=== PATIENT | male | born 1990 | race Two or more races ===

== ENCOUNTER 2021-10-22 09:21 | Inpatient (IN) | payer OTHER ==
[~2021-10-22] VITALS: Ht 175.3 cm; Wt 103.6 kg
[2021-10-22 10:01] LABS: BASOPHILS % (AUTO) 0.4 % (0.0-2.0); EOSINOPHILS % (AUTO) 0.2 % (1.0-6.0); HEMATOCRIT 45.5 % (41-53); HEMOGLOBIN 15.1 g/dL (13.5-17.5); LYMPHOCYTES # (AUTO) 1.8 K/uL (1.0-4.8); LYMPHOCYTES % (AUTO) 22.2 % (22.0-44.0); MEAN CORPUSCULAR HGB CONC 33.3 G/dL (31.0-37.0); MEAN CORPUSCULAR VOLUME 81 fL (80-100); MONOCYTES # (AUTO) 0.5 K/uL (0.1-1.0); MONOCYTES % (AUTO) 5.7 % (2.0-9.0); NEUTROPHILS # (AUTO) 5.8 K/uL (1.8-7.7); NEUTROPHILS % (AUTO) 71.5 % (40.0-70.0); PLATELET COUNT (AUTO) 219 K/uL (150-450); RED BLOOD CELL COUNT(AUTO) 5.59 MIL/uL (4.50-5.90); RED CELL DISTRIBUTION WIDTH 13.2 % (11.5-14.5)
[2021-10-22 10:08] LABS: ANION GAP 7 mmol/L (8-16); CALCIUM, TOTAL 9.5 mg/dL (8.8-10.5); CARBON DIOXIDE 29 mmol/L (22-29); CHLORIDE 104 mmol/L (98-107); CREATININE 0.86 mg/dL (0.60-1.30); GLOMERULAR FILTR. RATE CALC > 60 mL/min (>60); GLUCOSE,RANDOM 116 mg/dL (70-110); POTASSIUM 3.7 mmol/L (3.5-5.1); SODIUM SERUM 140 mmol/L (136-145); UREA NITROGEN, BLOOD 10 mg/dL (7-18)
[2021-10-22 10:14] LABS: ALANINE AMINOTRANSFERASE 22 U/L (12-78); ALKALINE PHOSPHATASE 69 U/L (46-116); ASPARTATE AMINOTRANSFERASE 23 U/L (15-37); BILIRUBIN,TOTAL 0.6 mg/dL (0.1-1.0); TOTAL PROTEIN, SERUM 8.3 g/dL (6.4-8.2)
[2021-10-22 10:25] LABS: COVID AG,FIA SOURCE NASAL SWAB
[2021-10-22] MEDS ORDERED: SODIUM CHLORIDE 0.9% 1,000 ML IV ONE (11:00)
[2021-10-22] MEDS ORDERED: MAGNESIUM HYDROXIDE SUSPENSION 30 ML UDCUP PO PRN (11:00)
[2021-10-22] MEDS ORDERED: LORazepam 2 MG/ML VIAL IVP PRN (11:00)
[2021-10-22] MEDS ORDERED: ZOLPIDEM TARTRATE 5 MG TABLET PO PRN (11:00)
[2021-10-22 12:19] VITALS: BP 121/73
[2021-10-22 15:35] VITALS: BP 124/76
[2021-10-22 20:00] VITALS: BP 122/72
[2021-10-22] MEDS: FAMOTIDINE 20 MG TABLET PO SCH (21:04)
[2021-10-23 04:43] VITALS: BP 125/54
[2021-10-23 08:09] VITALS: BP 112/70
[2021-10-23] MEDS: ONDANSETRON HCL 4 MG/2 ML VIAL IVP PRN (08:17)
[2021-10-23] MEDS: FAMOTIDINE 20 MG TABLET PO SCH ×2 (08:17→20:40)
[2021-10-23 16:13] VITALS: BP 136/79
[2021-10-23 20:06] VITALS: BP 111/75
[2021-10-23] MEDS: ACETAMINOPHEN 325 MG TABLET PO PRN (20:41)
[2021-10-24 05:18] VITALS: BP 117/76
[2021-10-24 08:18] VITALS: BP 116/63
[2021-10-24] MEDS: FAMOTIDINE 20 MG TABLET PO SCH ×2 (09:06→20:01)
[2021-10-24] MEDS: ONDANSETRON HCL 4 MG/2 ML VIAL IVP PRN ×2 (09:07→17:59)
[2021-10-24] MEDS ORDERED: SODIUM CHLORIDE 0.9% 1,000 ML IV ONE (10:00)
[2021-10-24 16:00] VITALS: BP 114/72
[2021-10-24 19:33] VITALS: BP 134/81
[2021-10-25 05:00] VITALS: BP 114/64
[2021-10-25 07:51] VITALS: BP 131/80
[2021-10-25] MEDS: FAMOTIDINE 20 MG TABLET PO SCH ×2 (08:12→19:59)
[2021-10-25] MEDS: ONDANSETRON HCL 4 MG/2 ML VIAL IVP PRN ×2 (08:13→17:00)
[2021-10-25 09:26] LABS: BASOPHILS % (AUTO) 0.7 % (0.0-2.0); EOSINOPHILS % (AUTO) 1.2 % (1.0-6.0); HEMATOCRIT 46.2 % (41-53); HEMOGLOBIN 15.6 g/dL (13.5-17.5); LYMPHOCYTES # (AUTO) 2.2 K/uL (1.0-4.8); LYMPHOCYTES % (AUTO) 30.1 % (22.0-44.0); MEAN CORPUSCULAR HEMOGLOBIN 27.1 pg (26.0-34.0); MEAN CORPUSCULAR HGB CONC 33.7 G/dL (31.0-37.0); MEAN CORPUSCULAR VOLUME 80 fL (80-100); MONOCYTES # (AUTO) 0.7 K/uL (0.1-1.0); MONOCYTES % (AUTO) 9.9 % (2.0-9.0); NEUTROPHILS # (AUTO) 4.3 K/uL (1.8-7.7); NEUTROPHILS % (AUTO) 58.1 % (40.0-70.0); PLATELET COUNT (AUTO) 208 K/uL (150-450); RED BLOOD CELL COUNT(AUTO) 5.75 MIL/uL (4.50-5.90)
[2021-10-25 09:38] LABS: ANION GAP 5 mmol/L (8-16); CARBON DIOXIDE 32 mmol/L (22-29); CHLORIDE 103 mmol/L (98-107); CREATININE 0.89 mg/dL (0.60-1.30); GLOMERULAR FILTR. RATE CALC > 60 mL/min (>60); GLUCOSE,RANDOM 84 mg/dL (70-110); POTASSIUM 3.9 mmol/L (3.5-5.1); SODIUM SERUM 140 mmol/L (136-145); UREA NITROGEN, BLOOD 12 mg/dL (7-18)
[2021-10-25 16:00] VITALS: BP 125/90
[2021-10-25 20:00] VITALS: BP 121/56
[2021-10-26 04:29] VITALS: BP 94/66
[2021-10-26 08:40] VITALS: BP 113/81
[2021-10-26] MEDS: FAMOTIDINE 20 MG TABLET PO SCH ×2 (08:47→20:30)
[2021-10-26] MEDS: ACETAMINOPHEN 325 MG TABLET PO PRN ×2 (08:49→20:30)
[2021-10-26 20:14] VITALS: BP 125/78
[2021-10-26] MEDS: ONDANSETRON HCL 4 MG/2 ML VIAL IVP PRN (20:30)
[2021-10-27 05:04] VITALS: BP 99/61
[2021-10-27] MEDS: ACETAMINOPHEN 325 MG TABLET PO PRN (06:26)
== END 2021-10-27 06:47 | DRG 897 ==
LOC: EMS 09:31 → 6S 11:08
PROVIDERS: ADMIT Internal Medicine; ATTEND Internal Medicine
DX: F11.23 Opioid dependence with withdrawal (principal); F15.13 Other stimulant abuse with withdrawal; F19.10 Other psychoactive substance abuse, uncomplicated; Z20.822 Contact with and (suspected) exposure to COVID-19; G89.29 Other chronic pain; F12.10 Cannabis abuse, uncomplicated; F14.10 Cocaine abuse, uncomplicated; E66.9 Obesity, unspecified; Z68.33 Body mass index [BMI] 33.0-33.9, adult
CPT/HCPCS: 80048; 80053; 83735; 85025; 93005; 99285; J2405; J7030